=== PATIENT | female | born 1940 | race Caucasian/White ===

== ENCOUNTER 2020-06-09 13:18 | Emergency (ER) | payer MEDICARE, OTHER ==
[~2020-06-09 13:18] MED LIST: ASPI81TA86 PO; LANO250T15 PO; LOSA50TA88 PO; METO50TA7 PO; POTASSIUM PO; VERA120T9 PO; VITA100018 PO; VITAMIN B12 INJ
[2020-06-09] MEDS ORDERED: CARB25TA9 (13:45)
[2020-06-09] MEDS ORDERED: LOSA100T5 (13:45)
[2020-06-09] MEDS ORDERED: LIDOCAINE W/EPINEPHRINE 1% 20ML VIAL SC ONE (14:10)
[2020-06-09] MEDS ORDERED: BOOSTRIX/ADACEL VACCINE (DIPHTH/PERTUSS/ACELL/TETANUS) 0.5ML SYR IM ONE (14:10)
[2020-06-09 14:41] LABS: BASO % 0.6 % (0.0-1.0); EOS # 0.1 10^3/uL (0.0-0.5); EOS % 4.1 % (0.0-3.0); HEMATOCRIT 39.6 % (36.0-47.0); HEMOGLOBIN 12.5 g/dl (12.0-15.5); LYMPH % 28.4 % (24.0-44.0); MEAN CORPUSCULAR HEMOGLOBIN 27.2 pg (27.0-33.0); MEAN CORPUSCULAR HGB CONC 31.6 g/dl (32.0-36.5); MEAN CORPUSCULAR VOLUME 86.3 fl (80.0-96.0); MONO # 0.3 10^3/uL (0.0-0.8); MONO % 7.8 % (2.0-8.0); NEUTROPHILS % 58.8 % (36.0-66.0); PLATELET COUNT, AUTOMATED 305 10^3/uL (150-450); RED BLOOD COUNT 4.59 10^6/uL (4.00-5.40); WHITE BLOOD COUNT 3.5 10^3/uL (4.0-10.0)
--- NOTE | 2020-06-09 14:41 | REP ---
INDICATION: trauma. COMPARISON: None. TECHNIQUE: Axial CT images with multiplanar reformations. FINDINGS: No acute bleed or fracture. Ventricles, cisterns and sulci are within normal limits. No mass effect or midline shift. No abnormal fluid collections. There is diffuse age-related volume loss and white matter changes. Paranasal sinuses and mastoid air cells are clear. IMPRESSION: No acute findings. Age-related volume loss and white matter changes. <Electronically signed by Cortez Ahumada > 06/09/20 [id number]
--- NOTE | 2020-06-09 14:43 | REP ---
INDICATION: trauma. COMPARISON: None. TECHNIQUE: Axial CT images with multiplanar reformations. FINDINGS: No facial bones fractures identified. Nasal bones are intact. Paranasal sinuses are clear. Orbits are intact. Dental hardware noted. Degenerative changes of the upper cervical spine noted. IMPRESSION: No acute findings. No fracture. <Electronically signed by Cortez Ahumada > 06/09/20 [id number]
--- NOTE | 2020-06-09 14:47 | REP ---
INDICATION: trauma. COMPARISON: None. TECHNIQUE: Axial CT images with multiplanar reformations. FINDINGS: No acute fracture or malalignment. Degenerative changes are noted with diminished disc space. There is a left convex cervical curvature. Degenerative changes are greater on the right, and noted at the C4-C5-C6 levels. Craniovertebral junction is unremarkable. No evidence of significant foraminal stenosis. IMPRESSION: No acute findings. Degenerative changes. <Electronically signed by Cortez Ahumada > 06/09/20 [id number]
[2020-06-09] MEDS ORDERED: VERAPAMIL 180MG EXTENDED RELEASE TABLET PO ONE (15:35)
[2020-06-09] MEDS ORDERED: VERAPAMIL 120 MG SR TAB PO ONE (15:35)
[2020-06-09 16:13] VITALS: BP 205/120
[2020-06-09 17:50] VITALS: BP 185/90
== END 2020-06-09 17:55 | disposition home or self-care (01) ==
LOC: M ED 13:18 → EDBD 13:18 → M ED 17:55
DX: S01.01XA Laceration without foreign body of scalp, initial encounter (principal); I10 Essential (primary) hypertension; V43.62XA Car passenger injured in collision with other type car in traffic accident, initial encounter; Y92.9 Unspecified place or not applicable; Y93.9 Activity, unspecified; Y99.9 Unspecified external cause status; R55 Syncope and collapse; Z95.818 Presence of other cardiac implants and grafts; Z79.82 Long term (current) use of aspirin; Z79.899 Other long term (current) drug therapy